=== PATIENT | male | born 1970 | race Caucasian/White ===

== ENCOUNTER → 2019-09-28 | Outpatient (CLI) | payer OTHER ==
--- NOTE | 2019-10-03 18:02 | Polysomnography ---
DATE OF STUDY: REFERRING PHYSICIAN: Richard Phillips MD HISTORY OF PRESENT ILLNESS: The patient reports snoring and excessive fatigue during the day. The patient has witnessed apnea at night and difficulty maintaining sleep. INTERPRETATION: The patient came to the laboratory for a diagnostic study. The patient slept for 233.5 minutes out of 446.5 minutes. The sleep efficiency was 52.3%. The sleep onset latency was 39 minutes. The latency to REM was not measured. The patient never achieved REM sleep. The patient had 234 apneic events and 5 hypopneic events. The apnea-hypopnea index was 35.7 events per hour. Minimal heart rate was 55 beats per minute. There were no arrhythmias. The minimal saturation was 86%. The patient had 288 limb movements. The limb movement index was 45.2 events per hour. The [place] sleep score was 11. 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 At 16 cm of water pressure, the nocturnal events were not controlled. The patient was switched to BiPAP. The BiPAP was gradually adjusted to 15/11. At this setting, the apnea-hypopnea index was reduced, but still remained at 12.6. IMPRESSION: 1. Severe obstructive sleep apnea. 2. Partial treatment of obstructive sleep apnea with BiPAP. RECOMMENDATIONS: 1. BiPAP at 15/10 with a heated humidifier. 2. Patient's choice of mask. 3. Avoid alcohol or sedatives prior to retiring at night. 4. Follow up in 3 months to ensure efficacy and compliance with BiPAP. Albert Ordoñez MD [facility] /[id number]
== END ==
LOC: SLEEP 20:17
PROVIDERS: ATTEND Specialist
DX: G47.33 Obstructive sleep apnea (adult) (pediatric) (principal)
CPT/HCPCS: 95811